=== PATIENT | female | born 1990 | race Caucasian/White ===

== ENCOUNTER 2023-11-01 00:05 | Emergency (ER) | payer OTHER ==
[~2023-11-01] VITALS: Ht 165.1 cm; Wt 86.2 kg
[2023-11-01 00:25] VITALS: BP 133/90; PULSE 94; RESP 14; TEMP 97.3; O2SAT 99
[2023-11-01] MEDS: MORPHINE SULFATE 4 MG/ML SYR IM ONE (01:06)
[2023-11-01 01:11] LABS: BASOPHILS % (AUTO) 0.6 % (0.0-2.0); EOSINOPHILS # (AUTO) 0.2 K/uL (0-0.4); EOSINOPHILS % (AUTO) 2.3 % (0.0-4.0); HEMATOCRIT 34.2 % (36-48); LYMPHOCYTES # (AUTO) 2.5 K/uL (2.5-16.5); LYMPHOCYTES % (AUTO) 30.5 % (20.5-51.1); MEAN CORPUSCULAR HEMOGLOBIN 31 pg (27-31); MEAN CORPUSCULAR HGB CONC 35 g/dL (33-37); MEAN CORPUSCULAR VOLUME 87.9 fL (80-94); MONOCYTES # (AUTO) 0.9 K/uL (0.8-1.0); MONOCYTES % (AUTO) 10.6 % (1.7-9.3); NEUTROPHILS # (AUTO) 4.7 K/uL (1.8-7.7); PLATELET COUNT (AUTO) 225 K/uL (140-450); RED BLOOD CELL COUNT(AUTO) 3.89 MIL/uL (4.20-5.40); RED CELL DISTRIBUTION WIDTH 13.1 % (11.6-13.7); WHITE BLOOD COUNT (AUTO) 8.3 K/uL (4.8-10.8)
[2023-11-01 01:21] LABS: ANION GAP 10.3 (8-16); CALCIUM 9.1 mg/dL (8.5-10.1); CREATININE 0.7 mg/dL (0.6-1.3); POTASSIUM 3.3 mmol/L (3.5-5.1)
[2023-11-01 01:26] LABS: INR 0.97 (0.8-1.2); PARTIAL THROMBOPLASTIN TIME 25.2 secs (22-35.6); PROTHROMBIN TIME 10.2 secs (10.8-13.4)
[2023-11-01] MEDS ORDERED: NAPR-337 PO (04:23)
[2023-11-01] MEDS ORDERED: LID5T TP (04:23)
[2023-11-01] MEDS ORDERED: METH-1681 PO (04:23)
[2023-11-01 04:30] VITALS: BP 120/78; PULSE 81; RESP 16; TEMP 98; O2SAT 98
== END 2023-11-01 04:30 | disposition home or self-care (01) ==
LOC: MED 00:05
DX: N93.8 Other specified abnormal uterine and vaginal bleeding (principal); Z79.899 Other long term (current) drug therapy
CPT/HCPCS: 36415; 76856; 80048; 85025; 85610; 85730; 86886; 86900; 86901; 96372; 99285; J2270